=== PATIENT | female | born 1965 | race Caucasian/White ===

== ENCOUNTER 2017-01-08 02:28 | Emergency (ER) | payer BC, OTHER ==
[~2017-01-08] VITALS: Ht 160 cm; Wt 81.6 kg
[~2017-01-08 02:28] MED LIST: ASPI1TAB PO; CRES5TAB PO; [UNRECOGNIZED DRUG - OTHER] PO
[2017-01-08 03:10] LABS: BASO % 0.5 % (0.0-1.0); EOS # 0.2 K/mm3 (0.0-0.50); EOS % 2.3 % (0.0-3.0); LARGE UNSTAINED CELL # 0.2 K/mm3 (0.0-0.4); LARGE UNSTAINED CELL % 1.7 % (0.0-4.0); LYMPH # 3.3 K/mm3 (1.5-4.5); LYMPH % 34.9 % (24.0-44.0); MEAN CORPUSCULAR HEMOGLOBIN 27.7 pg (27.0-33.0); MEAN CORPUSCULAR HGB CONC 32.1 g/dl (32.0-36.5); MEAN CORPUSCULAR VOLUME 86.3 fl (80.0-96.0); MONO # 0.5 K/mm3 (0.0-0.8); MONO % 5.2 % (0.0-5.0); NEUTROPHILS # 4.9 K/mm3 (1.8-7.7); NEUTROPHILS % 55.4 % (36.0-66.0); PLATELET COUNT, AUTOMATED 293 k/mm3 (150-450); RED CELL DISTRIBUTION WIDTH 13.4 % (11.5-14.5); WHITE BLOOD COUNT 8.9 K/mm3 (4.0-10.0)
[2017-01-08 03:12] LABS: INR 0.89
[2017-01-08] MEDS ORDERED: ASPIRIN 325 MG TAB PO ONE (03:15)
[2017-01-08 03:22] LABS: ANION GAP 7 MEQ/L (8-16); BLOOD UREA NITROGEN 16 MG/DL (7-18); CALCIUM LEVEL 8.5 MG/DL (8.5-10.1); CARBON DIOXIDE LEVEL 28 MEQ/L (21-32); CHLORIDE LEVEL 106 MEQ/L (98-107); CREATININE FOR GFR 0.81 MG/DL (0.55-1.02); GLOMERULAR FILTRATION RATE > 60.0 (>51); GLUCOSE, FASTING 93 MG/DL (70-105); POTASSIUM SERUM 3.9 MEQ/L (3.5-5.1); SODIUM LEVEL 141 MEQ/L (136-145)
[2017-01-08] MEDS ORDERED: ASPI81TA85 PO (07:16)
--- NOTE | 2017-01-08 07:23 | REP ---
Clinical: Chest pain . Comparison: 05/28/2016 . Technique: PA and lateral. Findings: The mediastinum and cardiac silhouette are normal. The lung lindsey are clear and without acute consolidation, effusion, or pneumothorax. Trace right basilar fibro atelectatic changes. The skeletal structures are intact and normal. Impression: 1. Trace right basilar fibro atelectatic changes relatively similar to prior examination. 2. No obvious acute process appreciated. Signed by Sorin Henriquez MD 01/08/2017 07:15 A
[2017-01-08 07:28] VITALS: BP 130/77
--- NOTE | 2017-01-08 11:35 | ECGEPIP ---
Stationary ECG Study [facility] - ED Test Date: 2017-01-08 Pat Name: RAMIRO BELL Department: Room: - Gender: F Personnel And Payroll Technician: tru : 1965 Requested By: ION BRANDON Order Number: [id number] Reading MD: Fermin Posadas Measurements Intervals [place] Rate: 65 P: 46 ME: 182 QRS: 7 QRSD: 97 T: 21 QT: 408 QTc: 427 Interpretive Statements SINUS RHYTHM Electronically Signed On 01-08-2017 11:35:22 EDT by Fermin Posadas
--- NOTE | 2017-01-08 11:36 | ECGEPIP ---
Stationary ECG Study [facility] - ED Test Date: 2017-01-08 Pat Name: RAMIRO BELL Department: Room: - Gender: F Media Marketing Manager: MendesB: 1965 Requested By: ION BRANDON Order Number: [id number] Reading MD: Fermin Posadas Measurements Intervals [place] Rate: 58 P: 44 [place]: 193 QRS: 21 QRSD: 92 T: 37 QT: 425 QTc: 420 Interpretive Statements SINUS BRADYCARDIA SIMILAR TO PRIOR ON SAME DATE Electronically Signed On 01-08-2017 11:35:55 EDT by Fermin Posadas
== END 2017-01-08 07:56 | disposition home or self-care (01) ==
LOC: M ED 03:36
DX: R07.9 Chest pain, unspecified (principal)

== ENCOUNTER → 2017-11-08 | Outpatient (CLI) | payer OTHER ==
[2017-11-08 12:08] LABS: HEMATOCRIT 41.8 % (36.0-47.0); HEMOGLOBIN 13.1 g/dl (12.0-15.5); MEAN CORPUSCULAR HEMOGLOBIN 27.2 pg (27.0-33.0); MEAN CORPUSCULAR HGB CONC 31.3 g/dl (32.0-36.5); MEAN CORPUSCULAR VOLUME 86.7 fl (80.0-96.0); PLATELET COUNT, AUTOMATED 289 10^3/uL (150-450); RED BLOOD COUNT 4.82 10^6/uL (4.00-5.40); RED CELL DISTRIBUTION WIDTH 14.2 % (11.5-14.5); WHITE BLOOD COUNT 5.6 10^3/uL (4.0-10.0)
[2017-11-08 12:28] LABS: ALBUMIN 3.9 GM/DL (3.2-5.2); ALBUMIN/GLOBULIN RATIO 1.18 (1.00-1.93); ALKALINE PHOSPHATASE 84 U/L (45-117); ALT/SGPT 74 U/L (12-78); ANION GAP 6 MEQ/L (8-16); AST/SGOT 24 U/L (7-37); BILIRUBIN,TOTAL 0.5 MG/DL (0.2-1.0); BLOOD UREA NITROGEN 19 MG/DL (7-18); CALCIUM LEVEL 9.3 MG/DL (8.5-10.1); CARBON DIOXIDE LEVEL 26 MEQ/L (21-32); CHLORIDE LEVEL 110 MEQ/L (98-107); CHOLESTEROL LEVEL 308 MG/DL (<200); CHOLESTEROL RISK RATIO 5.811 (<5); CREATININE FOR GFR 0.81 MG/DL (0.55-1.30); GLOMERULAR FILTRATION RATE > 60.0 (>51); GLUCOSE, FASTING 81 MG/DL (70-100); HDL CHOLESTEROL 53 MG/DL (>40); LDL CHOLESTEROL 235.6 MG/DL (<100); NON-HDL-C 255 MG/DL; SODIUM LEVEL 142 MEQ/L (136-145); TOTAL PROTEIN 7.2 GM/DL (6.4-8.2); TRIGLYCERIDES LEVEL 97 MG/DL (<150)
== END ==
LOC: M LRY 08:28
DX: I10 Essential (primary) hypertension (principal); E78.5 Hyperlipidemia, unspecified
CPT/HCPCS: 80053

== ENCOUNTER → 2022-03-20 | Outpatient (REF) | payer OTHER ==
[~2022-03-20] MED LIST changes: -ASPI1TAB PO; +ASPI81TA26 PO; +ASPI81TA86 PO
[2022-03-20 11:21] LABS: HEMATOCRIT 41.9 % (36.0-47.0); MEAN CORPUSCULAR VOLUME 87.1 fl (80.0-96.0); PLATELET COUNT, AUTOMATED 297 10^3/uL (150-450); RED BLOOD COUNT 4.81 10^6/uL (4.00-5.40); WHITE BLOOD COUNT 6.5 10^3/uL (4.0-10.0)
[2022-03-20 12:17] LABS: ALBUMIN 3.7 GM/DL (3.2-5.2); ALT/SGPT 49 U/L (12-78); BILIRUBIN,TOTAL 0.5 MG/DL (0.2-1.0); BLOOD UREA NITROGEN 18 MG/DL (7-18); CALCIUM LEVEL 9.7 MG/DL (8.5-10.1); CARBON DIOXIDE LEVEL 27 MEQ/L (21-32); CHLORIDE LEVEL 109 MEQ/L (98-107); CHOLESTEROL LEVEL 263 MG/DL (<200); CHOLESTEROL RISK RATIO 5.367 (<5); FREE T4 0.93 NG/DL (0.76-1.46); GLOMERULAR FILTRATION RATE > 60.0 (>51); GLUCOSE, FASTING 80 MG/DL (70-100); HDL CHOLESTEROL 49 MG/DL (>40); LDL CHOLESTEROL 182 MG/DL (<100); NON-HDL-C 214 MG/DL; POTASSIUM SERUM 4.4 MEQ/L (3.5-5.1); SODIUM LEVEL 143 MEQ/L (136-145); TOTAL PROTEIN 6.9 GM/DL (6.4-8.2); TRIGLYCERIDES LEVEL 160 MG/DL (<150)
[2022-03-20 12:40] LABS: VITAMIN B12 LEVEL 480 PG/ML (247-911)
[2022-03-20 12:51] LABS: TOTAL 25(OH) VITAMIN D 33.3 NG/ML (30.0-100.0)
== END ==
LOC: M LABDRAWC 10:51
PROVIDERS: ATTEND Nurse Practitioner Family
DX: I10 Essential (primary) hypertension (principal); E78.5 Hyperlipidemia, unspecified; E55.9 Vitamin D deficiency, unspecified; E03.9 Hypothyroidism, unspecified; D64.9 Anemia, unspecified

== ENCOUNTER → 2022-05-14 | Outpatient (REF) | payer OTHER | LOC: M SFHCWAGY 12:46 | PROVIDERS: ATTEND Specialist | DX: Z01.419 Encounter for gynecological examination (general) (routine) without abnormal findings (principal); N95.8 Other specified menopausal and perimenopausal disorders ==

== ENCOUNTER → 2022-05-30 | Outpatient (REF) | payer OTHER ==
[2022-05-30 13:19] LABS: CHOLESTEROL RISK RATIO 5.357 (<5)
== END ==
LOC: M LABDRAWC 11:34
PROVIDERS: ATTEND Nurse Practitioner Family
DX: E78.5 Hyperlipidemia, unspecified (principal)

== ENCOUNTER → 2022-06-01 | Outpatient (REF) | payer OTHER | LOC: M LAB REF 15:57 | PROVIDERS: ATTEND Surgery | DX: L72.0 Epidermal cyst (principal) ==